=== PATIENT | female | born 1950 | race Caucasian/White ===

== ENCOUNTER 2018-11-27 17:07 | Inpatient (IN) ==
[2018-11-27] MEDS ORDERED: 0.9 % Sodium Chloride 1,000 ML IVC ONE ×2 (17:44→18:56)
[2018-11-27] MEDS ORDERED: *HR* FentaNYL (PF) 100 MCG/2 ML VIAL IVP ONE (17:44)
--- NOTE | 2018-11-27 17:48 | Emergency Department Note ---
Disposition Clinical Impression: Acute kidney injury (nontraumatic), Acute urinary retention, Dehydration, severe Disposition: Admitted As Inpatient Condition: Fair Referrals: Caesar Modi DO [Primary Care Provider] - Forms: ED Satisfaction Letter Time of Disposition: 20:30 Chest Pain HPI - General Chief Complaint: ED Chest Pain Stated Complaint: chest pain Time Seen by Provider: 11/27/18 17:38 Source: patient, EMS Mode of arrival: EMS Limitations: no limitations Vital Signs Reviewed: Yes Nursing Notes Reviewed: Yes - History of Present Illness Pt complaint: chest pain Onset (ago): day(s) Duration: constant Onset: during rest Pain Location: right chest Severity: severe Severity scale (1-10): 10 Quality: heaviness Pain Radiation: none Improves with: nothing Worsens with: nothing Associated symptoms: Reports: other (Patient has had decreased appetite. She complains of weakness and not getting up and walking around over the past couple of days.). Denies: nausea, vomiting Treatments prior to arrival chest pain: none - Related Data Home Medications Medication Instructions Recorded Confirmed Albuterol Sulfate [Ventolin Hfa] 2 puff IH Q4H PRN 08/28/17 11/27/18 Aspirin [Lo-Dose Aspirin EC] 81 mg PO DAILY 08/28/17 11/27/18 Budesonide/Formoterol 160/4.5 2 puff IH BID 08/28/17 11/27/18 [Symbicort 160/4.5] Gabapentin [Neurontin] 800 mg PO TID 08/28/17 11/27/18 Insulin Degludec [Tresiba 60 unit SQ 1400 08/28/17 10/31/18 Flextouch U-100] Levothyroxine Sodium [Synthroid] 137 mcg PO DAILY 08/28/17 11/27/18 Simvastatin [Zocor] 40 mg PO HS 08/28/17 11/27/18 Ipratropium/Albuterol Neb [Duoneb] 3 ml IH Q6HR PRN 05/12/18 10/31/18 Potassium Chloride [Klor-Con] 20 meq PO DAILY 05/12/18 11/27/18 ALPRAZolam [Xanax 1 MG Tablet] 1 mg PO TID PRN 07/21/18 11/27/18 ARIPiprazole [Abilify] 15 mg PO DAILY 07/21/18 11/27/18 Famotidine [Pepcid] 40 mg PO DAILY 07/21/18 11/27/18 Furosemide [Lasix] 80 mg PO DAILY 07/21/18 11/27/18 Lisinopril [Zestril] 10 mg PO DAILY 07/21/18 11/27/18 Pioglitazone HCl 30 mg PO DAILY 07/21/18 11/27/18 Venlafaxine HCl [Venlafaxine HCl 150 mg PO BID 07/21/18 11/27/18 ER] Benztropine Mesylate 0.5 mg PO DAILY 10/31/18 11/27/18 Fexofenadine HCl 180 mg PO DAILY 10/31/18 11/27/18 Fluticasone Propionate [Flovent 50 mcg IH DAILY 10/31/18 11/27/18 Diskus] Allergies Allergy/AdvReac Type Severity Reaction Status Date / Time prednisone AdvReac See Verified 11/27/18 17:11 Comments All systems ED: reviewed and negative except as stated. Constitutional: Denies: fever, chills ENT ED: Denies: ear pain, throat pain, congestion Cardiovascular: Reports: chest pain. Denies: palpitations Respiratory: Denies: cough, dyspnea, wheezes Gastrointestinal: Denies: abdominal pain, nausea, vomiting, diarrhea Neurological: Denies: headache Chest Pain PMH - Past Medical History Medical history: Reports: arthritis, COPD, diabetes, hyperlipidemia, hypertension, renal disease, thyroid disease Surgical history: Reports: appendectomy, cholecystectomy, hysterectomy, other Psychiatric history: Reports: anxiety, bipolar, depression, PTSD CART ATTENDANT history: Reports: no CART ATTENDANT history - Social History Smoking Status: Current every day smoker Alcohol use: Reports: occasionally Drug use: Reports: marijuana Physical Exam - General Limitations: no limitations General appearance: alert - Head Head exam: atraumatic, normocephalic, normal inspection - Eye Eye exam: Present: normal appearance, PERRL, EOMI. Absent: scleral icterus, conjunctival injection, periorbital swelling - ENT ENT exam: normal exam, mucous membranes dry, TM's normal bilaterally, normal external ear exam - Neck Neck exam: Present: normal inspection, full ROM, trachea midline. Absent: meningismus - Chest Chest inspection: Present: normal inspection, symmetric chest wall rise. Absent: tenderness - Respiratory Respiratory exam: Present: normal lung sounds bilaterally. Absent: respiratory distress, wheezes - Cardiovascular Cardiovascular exam: Present: regular rate, normal rhythm, normal heart sounds - Abdominal Exam Abdominal exam: Present: soft, Non-Tender, normal bowel sounds - Extremities Exam Extremities exam: Present: normal inspection. Absent: pedal edema - Neurological Exam Neurological exam: Present: alert, oriented X3. Absent: motor sensory deficit - Psychiatric Psychiatric exam: Present: normal affect, normal mood - Skin Skin exam: Present: warm, dry Course Course Narrative: Patient presents with an actual complaint of chest pain but seems weak and run down a clinically looks very dehydrated. I will start some IV fluids and get a workup going. Disposition will be based on diagnostic results and reevaluation. - Reevaluation(s) Reevaluation #1: Patient's labs show significant elevation of BUN and creatinine. She was not putting out any urine and hurt tongue was so dry that clinically she looks dehydrated. However when we put a Stein catheter and she put out about 2500 mL of urine. I did a CT of the abdomen and there was no hydroureter or hydronephrosis. Turns out the patient took some Lasix to try and urinate. That certainly would explain why there is dehydration yet distended bladder with urinary retention. She is to be admitted for diuresis. She has some skin breakdown on her buttocks as well as need to be evaluated and chronic management of that is going need to be set up. I spoke with the hospitalist, Dr. Diaz and he accepted patient for admission to the hospital. Time: 20:29 Vital Signs Temperature 97.2 F L 11/27/18 17:12 Pulse Rate 88 11/27/18 17:12 Respiratory Rate 18 11/27/18 17:12 Blood Pressure 96/43 11/27/18 17:12 O2 Sat by Pulse Oximetry 93 11/27/18 17:12 Temperature 98.0 F 11/27/18 19:54 Pulse Rate 92 11/27/18 19:54 Respiratory Rate 16 11/27/18 19:54 Blood Pressure 118/41 11/27/18 19:54 O2 Sat by Pulse Oximetry 97 11/27/18 19:54 Oxygen Delivery Oxygen Delivery Nasal Cannula Chest Pain - Medical Records Medical records reviewed: Yes I reviewed the patient's medical records. - Lab Data Lab results reviewed: Yes I reviewed the patient's lab results. Result diagrams: 11/27/18 17:59 11/27/18 17:59 Lab Results 11/27/18 11/27/18 11/27/18 Range/Units 17:59 17:59 17:59 WBC 9.0 (4.3-11.1) K/mcL RBC 3.87 (3.82-4.97) M/mcL Hgb 12.4 (11.5-15.4) g/dL Hct 36.9 (35.3-44.9) % MCV 95.3 (83.0-100.0) fL MCH 32.0 (28.0-33.3) pg MCHC 33.6 (31.6-35.5) g/dL RDW 13.2 (11.5-14.5) % Plt Count 232 (140-400) K/mcL MPV 10.4 (9.4-12.4) fL Immature Gran % 0.3 (0-4) % Seg Neutrophils % 71.4 % Lymphocytes % 19.3 % Monocytes % 7.5 % Eosinophils % 0.7 % Basophils % 0.8 % Neutrophils # 6.4 (1.6-8.9) K/mcL Lymphocytes # 1.7 (0.6-4.6) K/mcL Monocytes # 0.7 (0.0-1.3) K/mcL Eosinophils # 0.1 (0.0-0.6) K/mcL Basophils # 0.1 (0.0-0.2) K/mcL Sodium 128 L (136-145) mEq/L Potassium 5.6 H (3.5-5.1) mEq/L Chloride 96 L (98-107) mEq/L Carbon Dioxide 21 L (23-29) mEq/L BUN 85 H (8-23) mg/dL Creatinine 4.72 H (0.60-1.20) mg/dL Est GFR ( Amer) 11 L (> 60) Est GFR (Non-Af Amer) 9 L (> 60) BUN/Creatinine Ratio 18 (6-26) Glucose 336 H (70-105) mg/dL Calculated Osmolality 305 H (280-300) Lactic Acid 2.2 (0.5-2.2) mmol/L Calcium 10.0 (8.6-10.3) mg/dL Total Bilirubin 0.5 (0.3-1.0) mg/dL Direct Bilirubin 0.1 (0.0-0.2) mg/dL Indirect Bilirubin 0.4 (0.0-1.2) mg/dL AST 9 L (13-39) Units/L ALT 9 (7-52) Units/L Alkaline Phosphatase 111 H (34-104) Units/L Troponin I < 0.03 (< 0.04) ng/mL B-Natriuretic Peptide (Less than 100) pg/mL Serum Total Protein 7.6 (6.4-8.9) g/dL Albumin 4.1 (3.5-5.7) g/dL Globulin 3.5 (2.4-3.5) g/dL Albumin/Globulin Ratio 1.2 (1.1-2.2) Urine Color (Yellow) Urine Clarity (Clear) Urine pH (5.0-8.0) pH Units Ur Specific [place] (1.010-1.025) Urine Protein (Neg-Trace) mg/dL Urine Glucose (UA) (Normal) mg/dL Urine Ketones (Negative) mg/dL Urine Blood (Negative) Urine Nitrite (Negative) Urine Bilirubin (Negative) Urine Urobilinogen (Normal) mg/dL Ur Leukocyte Esterase (Negative) Urine Microscopic RBC (0-3) per hpf Urine Microscopic WBC (0-3) per hpf Ur Squamous Epith Cells (None-Few) per lpf Urine Bacteria (None-Few) per hpf Urine Mucus (Few) Ur Culture Indicated? (NO) 11/27/18 11/27/18 Range/Units 17:59 19:10 WBC (4.3-11.1) K/mcL RBC (3.82-4.97) M/mcL Hgb (11.5-15.4) g/dL Hct (35.3-44.9) % MCV (83.0-100.0) fL MCH (28.0-33.3) pg MCHC (31.6-35.5) g/dL RDW (11.5-14.5) % Plt Count (140-400) K/mcL MPV (9.4-12.4) fL Immature Gran % (0-4) % Seg Neutrophils % % Lymphocytes % % Monocytes % % Eosinophils % % Basophils % % Neutrophils # (1.6-8.9) K/mcL Lymphocytes # (0.6-4.6) K/mcL Monocytes # (0.0-1.3) K/mcL Eosinophils # (0.0-0.6) K/mcL Basophils # (0.0-0.2) K/mcL Sodium (136-145) mEq/L Potassium (3.5-5.1) mEq/L Chloride (98-107) mEq/L Carbon Dioxide (23-29) mEq/L BUN (8-23) mg/dL Creatinine (0.60-1.20) mg/dL Est GFR ( Amer) (> 60) Est GFR (Non-Af Amer) (> 60) BUN/Creatinine Ratio (6-26) Glucose (70-105) mg/dL Calculated Osmolality (280-300) Lactic Acid (0.5-2.2) mmol/L Calcium (8.6-10.3) mg/dL Total Bilirubin (0.3-1.0) mg/dL Direct Bilirubin (0.0-0.2) mg/dL Indirect Bilirubin (0.0-1.2) mg/dL AST (13-39) Units/L ALT (7-52) Units/L Alkaline Phosphatase (34-104) Units/L Troponin I (< 0.04) ng/mL B-Natriuretic Peptide 16 (Less than 100) pg/mL Serum Total Protein (6.4-8.9) g/dL Albumin (3.5-5.7) g/dL Globulin (2.4-3.5) g/dL Albumin/Globulin Ratio (1.1-2.2) Urine Color Yellow (Yellow) Urine Clarity Slightly Cloudy A (Clear) Urine pH 5.5 (5.0-8.0) pH Units Ur Specific [place] 1.010 (1.010-1.025) Urine Protein Negative (Neg-Trace) mg/dL Urine Glucose (UA) 100 H (Normal) mg/dL Urine Ketones Negative (Negative) mg/dL Urine Blood Trace-intact H (Negative) Urine Nitrite Negative (Negative) Urine Bilirubin Negative (Negative) Urine Urobilinogen Normal (Normal) mg/dL Ur Leukocyte Esterase Trace H (Negative) Urine Microscopic RBC 0-3 (0-3) per hpf Urine Microscopic WBC 3-5 H (0-3) per hpf Ur Squamous Epith Cells Few (None-Few) per lpf Urine Bacteria Many H (None-Few) per hpf Urine Mucus Few (Few) Ur Culture Indicated? YES A (NO) - Radiology Data Radiology results reviewed: Yes I reviewed the patient's radiology results. - EKG Data EKG attestation: Yes I reviewed and interpreted this EKG. EKG results narrative: Twelve-lead EKG performed at 1714 p.m. Ordered, reviewed and interpreted by ED physician shows sinus rhythm at a rate of 86. Left axis deviation consistent with left anterior hemiblock. Delayed R-wave progression across precordium. No acute ischemic changes. Intervals otherwise within normal limits.
[2018-11-27 18:07] LABS: Basophils # 0.1 K/mcL (0.0-0.2); Basophils % 0.8 %; Eosinophils # 0.1 K/mcL (0.0-0.6); Eosinophils % 0.7 %; Hematocrit 36.9 % (35.3-44.9); Hemoglobin 12.4 g/dL (11.5-15.4); Immature Granulocytes % 0.3 % (0-4); Lymphocytes # 1.7 K/mcL (0.6-4.6); Lymphocytes % 19.3 %; Mean Corpuscular HGB Conc 33.6 g/dL (31.6-35.5); Mean Corpuscular Volume 95.3 fL (83.0-100.0); Mean Platelet Volume 10.4 fL (9.4-12.4); Monocytes # 0.7 K/mcL (0.0-1.3); Monocytes % 7.5 %; Neutrophils # 6.4 K/mcL (1.6-8.9); Platelet Count 232 K/mcL (140-400); Red Blood Count 3.87 M/mcL (3.82-4.97); Red Cell Distribution Width 13.2 % (11.5-14.5); Segmented Neutrophils % 71.4 %
[2018-11-27 18:26] LABS: Alanine Aminotransferase 9 Units/L (7-52); Albumin 4.1 g/dL (3.5-5.7); Albumin/Globulin Ratio 1.2 (1.1-2.2); Alkaline Phosphatase 111 Units/L (34-104); Aspartate Amino Transferase 9 Units/L (13-39); BUN/Creatinine Ratio 18 (6-26); Bilirubin,Direct 0.1 mg/dL (0.0-0.2); Bilirubin,Indirect 0.4 mg/dL (0.0-1.2); Bilirubin,Total 0.5 mg/dL (0.3-1.0); Blood Urea Nitrogen 85 mg/dL (8-23); Carbon Dioxide 21 mEq/L (23-29); Chloride 96 mEq/L (98-107); Globulin 3.5 g/dL (2.4-3.5); Glucose 336 mg/dL (70-105); Osmolality,Calculated 305 (280-300); Potassium 5.6 mEq/L (3.5-5.1); Sodium 128 mEq/L (136-145); Total Protein 7.6 g/dL (6.4-8.9); Troponin I < 0.03 ng/mL (< 0.04); eGFR For Non-African Americans 9 (> 60)
[2018-11-27 19:17] LABS: Bilirubin,Urine Negative (Negative); Blood,Urine Trace-intact (Negative); Clarity,Urine Slightly Cloudy (Clear); Color,Urine Yellow (Yellow); Glucose,Urine (UA) 100 mg/dL (Normal); Ketones,Urine Negative (Negative); Leukocyte Esterase,Urine Trace (Negative); Nitrite,Urine Negative (Negative); PH,Urine 5.5 pH Units (5.0-8.0); Protein,Urine Negative (Neg-Trace); Urobilinogen,Urine Normal (Normal)
[2018-11-27 19:46] LABS: Mucus,Urine Few (Few); RBC,Urine 0-3 per hpf (0-3); Squamous Epithelial Cell,Urine Few per lpf (None-Few)
[2018-11-27 19:47] LABS: Bacteria,Urine Many per hpf (None-Few)
[2018-11-27] MEDS ORDERED: Ondansetron 4 MG/2 ML VIAL IVP PRN (22:05)
[2018-11-27] MEDS ORDERED: ALPRAZolam 1 MG TABLET PO PRN (22:05)
[2018-11-27] MEDS ORDERED: Ipratropium/Albuterol Neb 3 ML IH PRN (22:05)
[2018-11-27] MEDS ORDERED: Naloxone 0.4 MG/ML INJ IVP PRN (22:05)
[2018-11-27] MEDS: Budesonide/Formoterol 160/4.5 1 PUFF INH IH SCH (23:00)
[2018-11-27] MEDS: Venlafaxine XR (24 HR) 150 MG CAP.ER.24H PO SCH (23:53)
[2018-11-27] MEDS: Gabapentin 400 MG CAPSULE PO SCH (23:53)
[2018-11-27] MEDS: 0.9 % Sodium Chloride 1,000 ML IVC SCH (23:54)
[2018-11-28] MEDS: 0.9 % Sodium Chloride 1,000 ML IVC SCH (06:49)
[2018-11-28] MEDS ORDERED: Aspirin Enteric Coated 81 MG Tablet PO SCH (09:00)
[2018-11-28] MEDS ORDERED: ARIPiprazole 10 MG TABLET PO SCH (09:00)
[2018-11-28] MEDS ORDERED: *HR* Pioglitazone 30 MG TABLET PO SCH (09:00)
[2018-11-28] MEDS: Levothyroxine 25 MCG TABLET PO SCH (09:04)
[2018-11-28] MEDS: Famotidine 20 MG TABLET PO SCH (09:05)
[2018-11-28] MEDS: Venlafaxine XR (24 HR) 150 MG CAP.ER.24H PO SCH ×2 (09:20→20:40)
[2018-11-28] MEDS: Gabapentin 400 MG CAPSULE PO SCH ×3 (09:21→20:40)
[2018-11-28] MEDS: *HR* Pioglitazone 15 MG TABLET PO SCH (09:26)
[2018-11-28] MEDS: Budesonide/Formoterol 160/4.5 1 PUFF INH IH SCH ×2 (09:38→22:56)
--- NOTE | 2018-11-28 10:06 | Internal Med History&Physical ---
Date of Encounter: 11/28/18 Time of Encounter: 09:35 Assessment and Plan (1) Acute on chronic renal failure Current visit: Yes Status: Acute IV fluids have been ordered. Lasix and lisinopril will be held. Further workup will be done as needed. Qualifiers: Acute renal failure type: unspecified Chronic kidney disease stage: stage 3 (moderate) Qualified Code(s): N17.9 - Acute kidney failure, unspecified; N18.3 - Chronic kidney disease, stage 3 (moderate) (2) Hyperkalemia Current visit: Yes Status: Acute Likely secondary to lisinopril and KCl use. These will be held. IV fluids will be given and labs will be monitored. (3) Hyponatremia Current visit: Yes Status: Acute Lasix will be held. IV normal saline has been ordered. Labs will be monitored. (4) Hypothyroid Current visit: No Status: Acute TSH was normal at 1.583 on 07/21/2018. Continue Synthroid. Qualifiers: Hypothyroidism type: unspecified Qualified Code(s): E03.9 - Hypothyroidism, unspecified (5) COPD (chronic obstructive pulmonary disease) Current visit: No Status: Chronic Continue Symbicort and albuterol Qualifiers: Emphysema type: unspecified Qualified Code(s): J43.9 - Emphysema, unspecified (6) Acute urinary retention Current visit: Yes Status: Acute Stein catheter now in place with significant urine output. Continue to monitor. (7) Anxiety Current visit: Yes Status: Acute Xanax will be held because of lethargy. Internal Medicine - H&P: HPI Chief complaint: Chest pain Admitted From: Emergency Dept Plans for Post Hospital Care: Home History of present illness: Ms. Jay is a 68 year old female who came to emergency room complaining of discomfort in her chest that she now reports had been present for approximately one week. In the emergency room she complained of weakness and inability to ambulate in her house. She was found to have urinary retention with approximately 2500 mL urine on Stein catheter insertion. She had significant acute on chronic renal failure. She was admitted to [facility] floor for ongoing care needs. She is lethargic and is a poor historian at this time. Review of available records show hospitalization December 2014 at [facility] with hematuria. She was transferred to [facility] for further evaluation of the hematuria. She does not recall the specific diagnosis at this time. She reports urinary tract in fections in the past. She denies knowledge of kidney stones. She has chronic kidney disease stage III. Past Med Surg Social Fam HX - Past Medical History Medical history: arthritis, COPD, diabetes, hyperlipidemia, hypertension, renal disease, thyroid disease Additional medical history: fibromyalgia. polyosteoarthritis Psychiatric history: anxiety, bipolar, depression, PTSD - Past Surgical History Surgical History: appendectomy, cholecystectomy, hysterectomy, other Additional surgical history: ORIF RT ARM - Social History Smoking Status: Current every day smoker Packs per day: 2 Smokeless Tobacco Status: No Alcohol use: occasionally Drug use: marijuana - Family History Father Hx Family Respiratory Disorders: Yes (lung cancer, smoker) Hx Family Cancer: Yes (lung cancer) Internal Medicine - H&P: Meds Albuterol Sulfate [Ventolin Hfa] 2 puff IH Q4H PRN 08/28/17 [History] Aspirin [Lo-Dose Aspirin EC] 81 mg PO DAILY 08/28/17 [History] Budesonide/Formoterol 160/4.5 [Symbicort 160/4.5] 2 puff IH BID 08/28/17 [History] Gabapentin [Neurontin] 800 mg PO TID 08/28/17 [History] Insulin Degludec [Tresiba Flextouch U-100] 60 unit SQ 1400 08/28/17 [History] Levothyroxine Sodium [Synthroid] 137 mcg PO DAILY 08/28/17 [History] Simvastatin [Zocor] 40 mg PO HS 08/28/17 [History] Ipratropium/Albuterol Neb [Duoneb] 3 ml IH Q6HR PRN 05/12/18 [History] Potassium Chloride [Klor-Con] 20 meq PO DAILY 05/12/18 [History] ALPRAZolam [Xanax 1 MG Tablet] 1 mg PO TID PRN 07/21/18 [History] ARIPiprazole [Abilify] 15 mg PO DAILY 07/21/18 [History] Famotidine [Pepcid] 40 mg PO DAILY 07/21/18 [History] Furosemide [Lasix] 80 mg PO DAILY 07/21/18 [History] Lisinopril [Zestril] 10 mg PO DAILY 07/21/18 [History] Pioglitazone HCl 30 mg PO DAILY 07/21/18 [History] Venlafaxine HCl [Venlafaxine HCl ER] 150 mg PO BID 07/21/18 [History] Benztropine Mesylate 0.5 mg PO DAILY 10/31/18 [History] Fexofenadine HCl 180 mg PO DAILY 10/31/18 [History] Fluticasone Propionate [Flovent Diskus] 50 mcg IH DAILY 10/31/18 [History] Allergy/AdvReac Type Severity Reaction Status Date / Time prednisone AdvReac See Verified 11/27/18 17:11 Comments All Systems PM: A 10-system review of systems was performed and is negative for pertinent findings except as documented above in the HPI. Review of systems: Review of systems from her December 2014 [facility] hospitalization were reviewed and revised as below. Gen.: Her weight has increased from 244 pounds December 2014 to present weight of approximately 287 pounds Cardiovascular: She cleaned she had an AR at [facility] approximately 2012 and was on "life support" but did not remember details. She denies hypertension heart failure DVT or pulmonary embolus Respiratory: She smoked since age 11 up to 3 packs per day. GI: She has had common bile duct stent placed. She has GERD. There is no known disorders of her liver gallbladder or exocrine pancreas otherwise : As per history of present illness Neurologic: She denies large distribution strokes or seizures. She has diabetic peripheral neuropathy. Endocrine: She was diagnosed with DM 2 approximately age 34. She has diabetic peripheral neuropathy and is legally blind. She has hypothyroidism and hyperlipidemia Hematology/oncology: She has no known blood disorders cancers or history of anemia Psychiatric: She has anxiety and bipolar disorder [place] skeletal: She has DJD but no known gout or osteoporosis. She has had left forearm fracture repair and left fourth finger surgery. - Constitutional Vitals: Temp Pulse Resp BP Pulse Ox 97.3 F L 65 16 90/51 95 11/28/18 07:01 11/28/18 07:01 11/28/18 07:01 11/28/18 07:01 11/28/18 07:01 Exam: Gen.: She is a well-developed obese female lying in bed who is lethargic. She drifts off to sleep frequently during questioning. HEENT: Head is atraumatic and normocephalic. Eyes: EOMI. There is no scleral icterus. Mouth: Mucosa is slightly dry. Neck: There is no thyromegaly or adenopathy noted. Heart: Regular without murmurs gallops or ectopics Lungs: No wheezes or crackles are heard. Abdomen: Soft and nontender. No masses or guarding are noted. Extremities: There is no cyanosis edema or clubbing noted. Dorsalis pedis and posterior tibial pulses are trace palpable bilaterally. Her feet are warm to touch. Neurologic: Mental status: She is talkative and a good historian. Cranial nerves: Smile is symmetric. Forehead wrinkles bilaterally. Tongue protrudes midline. EOMI. Motor: She cannot pronate her arms well. There is no obvious pronator drift. She has cogwheeling and rigidity on passive range of motion of her arms. Cerebellar: Finger to nose is intact bilaterally. Skin: Warm and dry Internal Med - H&P Results - Labs CBC & Chem 7: 11/27/18 17:59 11/27/18 17:59 Labs: Short CBC 11/27/18 Range/Units 17:59 WBC 9.0 (4.3-11.1) K/mcL Hgb 12.4 (11.5-15.4) g/dL Hct 36.9 (35.3-44.9) % Plt Count 232 (140-400) K/mcL Neutrophils # 6.4 (1.6-8.9) K/mcL BMP 11/27/18 17:59 Sodium 128 L Potassium 5.6 H Chloride 96 L Carbon Dioxide 21 L BUN 85 H Creatinine 4.72 H Glucose 336 H Calcium 10.0 Cardiac Enzymes 11/27/18 11/27/18 11/28/18 Range/Units 17:59 22:21 04:05 Troponin I < 0.03 < 0.03 < 0.03 (< 0.04) ng/mL Liver Function 11/27/18 Range/Units 17:59 Total Bilirubin 0.5 (0.3-1.0) mg/dL Direct Bilirubin 0.1 (0.0-0.2) mg/dL AST 9 L (13-39) Units/L ALT 9 (7-52) Units/L Alkaline Phosphatase 111 H (34-104) Units/L Albumin 4.1 (3.5-5.7) g/dL Urine 11/27/18 Range/Units 19:10 Urine Color Yellow (Yellow) Urine Clarity Slightly Cloudy A (Clear) Urine pH 5.5 (5.0-8.0) pH Units Ur Specific [place] 1.010 (1.010-1.025) Urine Protein Negative (Neg-Trace) mg/dL Urine Glucose (UA) 100 H (Normal) mg/dL - Impressions ITS Impressions Chest X-Ray 11/27/18 17:44 IMPRESSION: Stable appearance of the chest without acute cardiopulmonary process identified. D/ / Greg Luna MD / Greg Luna MD Interpreting Provider: Greg Luna MD Abdomen/Pelvis CT 11/27/18 19:10 IMPRESSION: No evidence of acute inflammatory process or bowel obstruction. No evidence of nephrolithiasis or obstructive uropathy. D/ / Trent German / Trent German Interpreting Provider: Trent German
[2018-11-28 10:20] LABS: Basophils # 0.1 K/mcL (0.0-0.2); Basophils % 0.8 %; Eosinophils # 0.2 K/mcL (0.0-0.6); Eosinophils % 2.5 %; Hematocrit 34.6 % (35.3-44.9); Hemoglobin 11.4 g/dL (11.5-15.4); Immature Granulocytes % 0.5 % (0-4); Lymphocytes # 1.8 K/mcL (0.6-4.6); Lymphocytes % 20.2 %; Mean Corpuscular HGB Conc 32.9 g/dL (31.6-35.5); Mean Corpuscular Hemoglobin 32.2 pg (28.0-33.3); Mean Corpuscular Volume 97.7 fL (83.0-100.0); Mean Platelet Volume 10.6 fL (9.4-12.4); Neutrophils # 5.7 K/mcL (1.6-8.9); Platelet Count 187 K/mcL (140-400); Red Blood Count 3.54 M/mcL (3.82-4.97); Red Cell Distribution Width 13.2 % (11.5-14.5)
[2018-11-28 10:28] LABS: ABG Base Excess -6 mEq/L (-2 to 3); ABG HCO3 21 mEq/L (21-27); ABG Oxygen Saturation 97 % (95-98); ABG PCO2 42 mmHg (35-45); ABG PO2 96 mmHg (85-104); ABG TCO2 22 mEq/L (20-26)
[2018-11-28 10:32] LABS: Calcium 8.8 mg/dL (8.6-10.3); Magnesium 2.2 mg/dL (1.6-2.6); Potassium 4.9 mEq/L (3.5-5.1)
[2018-11-28] MEDS: (Flovent Diskus] 50 MCG) IH SCH (10:53)
[2018-11-28] MEDS ORDERED: *HR* Dextrose 50 % in Water (Syg) 50 ML SYRINGE IVP PRN (12:26)
[2018-11-28] MEDS ORDERED: D5% in Water 1,000 ML IVC PRN (12:26)
[2018-11-28] MEDS ORDERED: Dextrose Gel 15 GM/37.5 ML TUBE PO PRN ×2 (12:26)
[2018-11-28] MEDS: Insulin LISPRO 300 UNITS/3 ML VIAL SQ SCH ×4 (13:23→20:57)
[2018-11-28] MEDS ORDERED: Insulin DETEMIR 100 UNIT/ML X5UNITS SQ SCH (14:00)
[2018-11-28] MEDS: Nicotine 21 MG PATCH.TD24 TD SCH (15:22)
[2018-11-28] MEDS ORDERED: Acetaminophen 325 MG TABLET PO PRN (16:53)
[2018-11-28] MEDS ORDERED: *HR* Dextrose 50 % in Water (Vial) 50 ML VIAL IVP PRN (17:30)
[2018-11-28] MEDS: ARIPiprazole 5 MG TABLET PO SCH (20:39)
[2018-11-29 05:49] LABS: Basophils % 0.6 %; Eosinophils # 0.2 K/mcL (0.0-0.6); Eosinophils % 3.4 %; Hematocrit 29.2 % (35.3-44.9); Hemoglobin 9.6 g/dL (11.5-15.4); Immature Granulocytes % 0.3 % (0-4); Lymphocytes # 2.1 K/mcL (0.6-4.6); Mean Corpuscular HGB Conc 32.9 g/dL (31.6-35.5); Mean Corpuscular Hemoglobin 32.2 pg (28.0-33.3); Mean Platelet Volume 10.7 fL (9.4-12.4); Monocytes # 0.7 K/mcL (0.0-1.3); Monocytes % 10.1 %; Platelet Count 170 K/mcL (140-400); Red Blood Count 2.98 M/mcL (3.82-4.97); Red Cell Distribution Width 13.2 % (11.5-14.5); Segmented Neutrophils % 56.6 %
[2018-11-29] MEDS: Levothyroxine 25 MCG TABLET PO SCH (06:12)
[2018-11-29 06:16] LABS: Calcium 8.4 mg/dL (8.6-10.3); Potassium 4.8 mEq/L (3.5-5.1)
[2018-11-29] MEDS: Gabapentin 400 MG CAPSULE PO SCH ×3 (08:55→21:01)
[2018-11-29] MEDS: Famotidine 20 MG TABLET PO SCH (08:55)
[2018-11-29] MEDS: Nicotine 21 MG PATCH.TD24 TD SCH (08:55)
[2018-11-29] MEDS: *HR* Pioglitazone 15 MG TABLET PO SCH (09:01)
[2018-11-29] MEDS: ARIPiprazole 5 MG TABLET PO SCH (09:01)
[2018-11-29] MEDS: Venlafaxine XR (24 HR) 150 MG CAP.ER.24H PO SCH ×2 (09:02→21:01)
[2018-11-29] MEDS: Insulin LISPRO 300 UNITS/3 ML VIAL SQ SCH ×4 (09:17→21:02)
--- NOTE | 2018-11-29 09:29 | Internal Med Progress Note ---
Date of Encounter: 11/29/18 Time of Encounter: 09:20 - Assessment and plan (1) Acute on chronic renal failure Current Visit: Yes Status: Acute Assessment and plan: November 29. Creatinine slightly improved to 3.33 with estimated GFR 14. Continue IV fluids. Recheck labs in a.m. Qualifiers: Acute renal failure type: unspecified Chronic kidney disease stage: stage 3 (moderate) Qualified Code(s): N17.9 - Acute kidney failure, unspecified; N18.3 - Chronic kidney disease, stage 3 (moderate) (2) Hyperkalemia Current Visit: Yes Status: Acute Assessment and plan: November 29. Resolved. Potassium 4.8 today. Continue to monitor. (3) Hyponatremia Current Visit: Yes Status: Acute Assessment and plan: November 29. Sodium stable at 132. Continue to monitor. (4) Hypothyroid Current Visit: No Status: Acute Assessment and plan: November 29. TSH was normal at 1.583 on 07/21/2018. Continue Synthroid. Qualifiers: Hypothyroidism type: unspecified Qualified Code(s): E03.9 - Hypothyroidism, unspecified (5) COPD (chronic obstructive pulmonary disease) Current Visit: No Status: Chronic Assessment and plan: November 29. Continue Symbicort and albuterol. Qualifiers: Emphysema type: unspecified Qualified Code(s): J43.9 - Emphysema, unspecified (6) Acute urinary retention Current Visit: Yes Status: Acute Assessment and plan: November 29. Discontinue Stein and monitor urinary output. (7) Anxiety Current Visit: Yes Status: Acute Assessment and plan: November 29. Remain off Xanax. (8) Anemia Current Visit: Yes Status: Acute Assessment and plan: November 29. Hemoglobin has decreased to 9.6. Order anemia testing in a.m. Qualifiers: Anemia type: unspecified type Qualified Code(s): D64.9 - Anemia, unspecified - Subjective Interval history: November 29. She has no new complaints. She states she has chronic back pain - Constitutional Vitals: Temp Pulse Resp BP Pulse Ox 98.1 F 73 16 92/51 94 11/29/18 06:42 11/29/18 06:42 11/29/18 06:42 11/29/18 06:42 11/29/18 06:42 Exam: She is resting comfortably in bed and appears in no acute distress. She is much more alert and talkative. Her conversation is appropriate. I reviewed her medications and lab results. Internal Medicine: Result - Labs CBC & Chem 7: 11/29/18 05:15 11/29/18 05:15 Labs: Short CBC 11/28/18 11/29/18 Range/Units 10:07 05:15 WBC 8.7 7.1 (4.3-11.1) K/mcL Hgb 11.4 L 9.6 L D (11.5-15.4) g/dL Hct 34.6 L 29.2 L (35.3-44.9) % Plt Count 187 170 (140-400) K/mcL Neutrophils # 5.7 4.0 (1.6-8.9) K/mcL BMP 11/28/18 11/29/18 10:07 05:15 Sodium 132 L 132 L Potassium 4.9 4.8 Chloride 104 105 Carbon Dioxide 23 23 BUN 75 H 72 H Creatinine 3.77 H 3.33 H Glucose 241 H 233 H Calcium 8.8 8.4 L Cardiac Enzymes 11/28/18 Range/Units 10:06 Troponin I < 0.03 (< 0.04) ng/mL - ABG Interpretation ABG results: ABG ABG pH 7.30 pH Units (7.32-7.45) L 11/28/18 10:25 ABG pCO2 42 mmHg (35-45) 11/28/18 10:25 ABG pO2 96 mmHg (85-104) 11/28/18 10:25 ABG O2 Saturation 97 % (95-98) 11/28/18 10:25 Consult Discharge Plan - Plan Referrals: Caesar Modi, [Primary Care Provider] - 1 week
[2018-11-29] MEDS: Budesonide/Formoterol 160/4.5 1 PUFF INH IH SCH ×2 (09:51→22:00)
[2018-11-29] MEDS: (Flovent Diskus] 50 MCG) IH SCH (09:57)
[2018-11-29] MEDS: Acetaminophen 325 MG TABLET PO SCH ×2 (11:54→17:38)
[2018-11-29] MEDS: Insulin DETEMIR 100 UNIT/ML X5UNITS SQ SCH (21:01)
[2018-11-30] MEDS ORDERED: MOM Conc 10 ML UD.LIQ PO PRN (00:20)
[2018-11-30] MEDS: Acetaminophen 325 MG TABLET PO SCH ×5 (00:44→23:20)
[2018-11-30] MEDS: Levothyroxine 25 MCG TABLET PO SCH (06:54)
[2018-11-30 07:27] LABS: Basophils % 0.6 %; Eosinophils # 0.3 K/mcL (0.0-0.6); Hematocrit 28.4 % (35.3-44.9); Hemoglobin 9.4 g/dL (11.5-15.4); Immature Granulocytes % 0.5 % (0-4); Lymphocytes # 2.1 K/mcL (0.6-4.6); Lymphocytes % 31.8 %; Mean Corpuscular HGB Conc 33.1 g/dL (31.6-35.5); Mean Corpuscular Hemoglobin 32.1 pg (28.0-33.3); Mean Corpuscular Volume 96.9 fL (83.0-100.0); Mean Platelet Volume 10.4 fL (9.4-12.4); Monocytes # 0.6 K/mcL (0.0-1.3); Monocytes % 8.5 %; Neutrophils # 3.6 K/mcL (1.6-8.9); Platelet Count 168 K/mcL (140-400); Red Blood Count 2.93 M/mcL (3.82-4.97); Red Cell Distribution Width 13.2 % (11.5-14.5); Segmented Neutrophils % 53.6 %
[2018-11-30 08:15] LABS: Calcium 8.4 mg/dL (8.6-10.3); Potassium 5.3 mEq/L (3.5-5.1)
[2018-11-30] MEDS: Insulin LISPRO 300 UNITS/3 ML VIAL SQ SCH ×4 (08:48→20:00)
[2018-11-30] MEDS: Famotidine 20 MG TABLET PO SCH (08:49)
[2018-11-30] MEDS: *HR* Pioglitazone 15 MG TABLET PO SCH (08:49)
[2018-11-30] MEDS: Venlafaxine XR (24 HR) 150 MG CAP.ER.24H PO SCH ×2 (08:49→20:00)
[2018-11-30] MEDS: Gabapentin 400 MG CAPSULE PO SCH ×3 (08:50→20:00)
[2018-11-30] MEDS: ARIPiprazole 5 MG TABLET PO SCH (08:50)
[2018-11-30] MEDS: Nicotine 21 MG PATCH.TD24 TD SCH (08:54)
[2018-11-30 10:10] LABS: Folate 10.1 ng/mL (3.0-16.0)
[2018-11-30] MEDS: Budesonide/Formoterol 160/4.5 1 PUFF INH IH SCH ×2 (10:28→22:26)
[2018-11-30] MEDS: (Flovent Diskus] 50 MCG) IH SCH (10:29)
--- NOTE | 2018-11-30 11:51 | Internal Med Progress Note ---
Date of Encounter: 11/30/18 Time of Encounter: 11:40 - Assessment and plan (1) Acute on chronic renal failure Current Visit: Yes Status: Acute Assessment and plan: November 29. Creatinine slightly improved to 3.33 with estimated GFR 14. Continue IV fluids. Recheck labs in a.m. November 30. Creatinine further improved to 2.45 with estimated GFR 20. Continue IV fluids and monitor labs. Remain off Lasix and lisinopril Qualifiers: Acute renal failure type: unspecified Chronic kidney disease stage: stage 3 (moderate) Qualified Code(s): N17.9 - Acute kidney failure, unspecified; N18.3 - Chronic kidney disease, stage 3 (moderate) (2) Hyperkalemia Current Visit: Yes Status: Acute Assessment and plan: November 29. Resolved. Potassium 4.8 today. Continue to monitor. November 30. Potassium slightly elevated at 5.3. Continue to monitor. Remain off lisinopril. (3) Hyponatremia Current Visit: Yes Status: Acute Assessment and plan: November 29. Sodium stable at 132. Continue to monitor. November 30. Sodium gradually improving. Continue present Rx. (4) Hypothyroid Current Visit: No Status: Acute Assessment and plan: November 29. TSH was normal at 1.583 on 07/21/2018. Continue Synthroid. Qualifiers: Hypothyroidism type: unspecified Qualified Code(s): E03.9 - Hypothyroidism, unspecified (5) COPD (chronic obstructive pulmonary disease) Current Visit: No Status: Chronic Assessment and plan: November 29. Continue Symbicort and albuterol. Qualifiers: Emphysema type: unspecified Qualified Code(s): J43.9 - Emphysema, unspecified (6) Acute urinary retention Current Visit: Yes Status: Acute Assessment and plan: November 29. Discontinue Stein and monitor urinary output. November 30. Start Urecholine and discontinue Stein. (7) Anxiety Current Visit: Yes Status: Acute Assessment and plan: November 29. Remain off Xanax. (8) Anemia Current Visit: Yes Status: Acute Assessment and plan: November 29. Hemoglobin has decreased to 9.6. Order anemia testing in a.m. November 30. Hemoglobin minimally decreased to 9.4. Anemia testing showed iron 70, transferrin saturation 30%, transferrin 169, ferritin 105, B12 293, and folate 10.1. Suspect anemia primarily due to chronic kidney disease. Continue to monitor labs periodically. Qualifiers: Anemia type: unspecified type Qualified Code(s): D64.9 - Anemia, unsp ecified (9) Weakness Current Visit: Yes Status: Acute Assessment and plan: November 30. PT and OT evaluations will be ordered. I had a long discussion with her about her need for therapy prior to attempting return to independent living at home. She seemed agreeable to consider going to SNF ([facility]) for ongoing therapy. - Subjective Interval history: November 29. She has no new complaints. She states she has chronic back pain November 30. She has no new complaints but states she feels tired. - Constitutional Vitals: Temp Pulse Resp BP Pulse Ox 98.2 F 80 18 96/39 95 11/30/18 11:01 11/30/18 11:01 11/30/18 11:01 11/30/18 11:01 11/30/18 11:01 Exam: She is resting comfortably in bed and appears in no acute distress. Her affect is overall cheerful. She was appropriate in conversation. Extremities show no pitting edema. I reviewed her medications and lab results. Internal Medicine: Result - Labs CBC & Chem 7: 11/30/18 07:14 11/30/18 07:14 Labs: Short CBC 11/30/18 Range/Units 07:14 WBC 6.6 (4.3-11.1) K/mcL Hgb 9.4 L (11.5-15.4) g/dL Hct 28.4 L (35.3-44.9) % Plt Count 168 (140-400) K/mcL Neutrophils # 3.6 (1.6-8.9) K/mcL BMP 11/30/18 07:14 Sodium 133 L Potassium 5.3 H Chloride 105 Carbon Dioxide 22 L BUN 72 H Creatinine 2.45 H Glucose 275 H Calcium 8.4 L - ABG Interpretation ABG results: ABG ABG pH 7.30 pH Units (7.32-7.45) L 11/28/18 10:25 ABG pCO2 42 mmHg (35-45) 11/28/18 10:25 ABG pO2 96 mmHg (85-104) 11/28/18 10:25 ABG O2 Saturation 97 % (95-98) 11/28/18 10:25 Consult Discharge Plan - Plan Referrals: Caesar Modi, DO [Primary Care Provider] - 1 week
--- NOTE | 2018-11-30 12:06 | Electrocardiograph Report ---
Test Date: 2018-11-27 Pat Name: Elizabeth Jay Department: EDP-15 Room: 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
[2018-11-30] MEDS: Insulin DETEMIR 100 UNIT/ML X5UNITS SQ SCH (20:00)
[2018-12-01] MEDS: Levothyroxine 25 MCG TABLET PO SCH (05:23)
[2018-12-01] MEDS: Acetaminophen 325 MG TABLET PO SCH ×4 (05:23→23:46)
[2018-12-01 06:17] LABS: Basophils % 0.6 %; Eosinophils # 0.3 K/mcL (0.0-0.6); Eosinophils % 4.2 %; Immature Granulocytes % 0.3 % (0-4); Lymphocytes # 2.2 K/mcL (0.6-4.6); Lymphocytes % 31.6 %; Mean Corpuscular HGB Conc 32.1 g/dL (31.6-35.5); Mean Corpuscular Hemoglobin 31.7 pg (28.0-33.3); Mean Corpuscular Volume 98.6 fL (83.0-100.0); Mean Platelet Volume 10.4 fL (9.4-12.4); Monocytes # 0.7 K/mcL (0.0-1.3); Monocytes % 9.3 %; Neutrophils # 3.8 K/mcL (1.6-8.9); Platelet Count 160 K/mcL (140-400); Red Blood Count 2.84 M/mcL (3.82-4.97); Red Cell Distribution Width 13.2 % (11.5-14.5)
[2018-12-01 06:46] LABS: Calcium 8.3 mg/dL (8.6-10.3); Potassium 5.6 mEq/L (3.5-5.1)
[2018-12-01] MEDS: Insulin LISPRO 300 UNITS/3 ML VIAL SQ SCH ×4 (09:11→21:20)
[2018-12-01] MEDS: *HR* Pioglitazone 15 MG TABLET PO SCH (09:12)
[2018-12-01] MEDS: ARIPiprazole 5 MG TABLET PO SCH (09:12)
[2018-12-01] MEDS: Famotidine 20 MG TABLET PO SCH (09:12)
[2018-12-01] MEDS: Venlafaxine XR (24 HR) 150 MG CAP.ER.24H PO SCH ×2 (09:12→21:20)
[2018-12-01] MEDS: Nicotine 21 MG PATCH.TD24 TD SCH (09:12)
[2018-12-01] MEDS: Gabapentin 400 MG CAPSULE PO SCH ×3 (09:12→21:20)
[2018-12-01] MEDS: (Flovent Diskus] 50 MCG) IH SCH (09:36)
[2018-12-01] MEDS: Budesonide/Formoterol 160/4.5 1 PUFF INH IH SCH ×2 (10:25→22:16)
--- NOTE | 2018-12-01 12:52 | Internal Med Progress Note ---
Date of Encounter: 12/01/18 Time of Encounter: 12:45 - Assessment and plan (1) Acute on chronic renal failure Current Visit: Yes Status: Acute Assessment and plan: November 29. Creatinine slightly improved to 3.33 with estimated GFR 14. Continue IV fluids. Recheck labs in a.m. November 30. Creatinine further improved to 2.45 with estimated GFR 20. Continue IV fluids and monitor labs. Remain off Lasix and lisinopril December 01. Creatinine decreased to 2.03 with estimated GFR 24. Continue present Rx. Qualifiers: Acute renal failure type: unspecified Chronic kidney disease stage: stage 3 (moderate) Qualified Code(s): N17.9 - Acute kidney failure, unspecified; N18.3 - Chronic kidney disease, stage 3 (moderate) (2) Hyperkalemia Current Visit: Yes Status: Acute Assessment and plan: November 29. Resolved. Potassium 4.8 today. Continue to monitor. November 30. Potassium slightly elevated at 5.3. Continue to monitor. Remain off lisinopril. December 01. Potassium has risen to 5.6. Will give Kayexalate. (3) Hyponatremia Current Visit: Yes Status: Acute Assessment and plan: November 29. Sodium stable at 132. Continue to monitor. November 30. Sodium gradually improving. Continue present Rx. December 01. Decrease IV rate continue to monitor. (4) Hypothyroid Current Visit: No Status: Acute Assessment and plan: November 29. TSH was normal at 1.583 on 07/21/2018. Continue Synthroid. Qualifiers: Hypothyroidism type: unspecified Qualified Code(s): E03.9 - Hypothyroidism, unspecified (5) COPD (chronic obstructive pulmonary disease) Current Visit: No Status: Chronic Assessment and plan: November 29. Continue Symbicort and albuterol. Qualifiers: Emphysema type: unspecified Qualified Code(s): J43.9 - Emphysema, unspecified (6) Acute urinary retention Current Visit: Yes Status: Acute Assessment and plan: November 29. Discontinue Stein and monitor urinary output. November 30. Start Urecholine and discontinue Stein. December 01. She had recurrent urinary retention requiring reinsertion of Stein. She will need urology referral. Continue Urecholine. (7) Anxiety Current Visit: Yes Status: Acute Assessment and plan: November 29. Remain off Xanax. (8) Anemia Current Visit: Yes Status: Acute Assessment and plan: November 29. Hemoglobin has decreased to 9.6. Order anemia testing in a.m. November 30. Hemoglobin minimally decreased to 9.4. Anemia testing showed iron 70, transferrin saturation 30%, transferrin 169, ferritin 105, B12 293, and folate 10.1. Suspect anemia primarily due to chronic kidney disease. Continue to monitor labs periodically. December 01. Hemoglobin decreased to 9.0. Decrease IV fluid rate and continue to monitor. Qualifiers: Anemia type: unspecified type Qualified Code(s): D64.9 - Anemia, unspecified (9) Weakness Current Visit: Yes Status: Acute Assessment and plan: November 30. PT and OT evaluations will be ordered. I had a long discussion with her about her need for therapy prior to attempting return to independent living at home. She seemed agreeable to consider going to SNF ([facility] [place]) for ongoing therapy. - Subjective Interval history: November 29. She has no new complaints. She states she has chronic back pain November 30. She has no new complaints but states she feels tired. December 01. She has no new complaints. - Constitutional Vitals: Temp Pulse Resp BP Pulse Ox 97.6 F 65 18 74/39 92 12/01/18 11:28 12/01/18 11:28 12/01/18 11:28 12/01/18 11:28 12/01/18 11:28 Exam: She is resting currently in bed and appears in no acute distress. Her affect is bright and cheerful. I reviewed her medications and lab results. Internal Medicine: Result - Labs CBC & Chem 7: 12/01/18 05:43 12/01/18 05:43 Labs: Short CBC 12/01/18 Range/Units 05:43 WBC 7.0 (4.3-11.1) K/mcL Hgb 9.0 L (11.5-15.4) g/dL Hct 28.0 L (35.3-44.9) % Plt Count 160 (140-400) K/mcL Neutrophils # 3.8 (1.6-8.9) K/mcL BMP 12/01/18 05:43 Sodium 131 L Potassium 5.6 H Chloride 107 Carbon Dioxide 21 L BUN 73 H Creatinine 2.03 H Glucose 201 H Calcium 8.3 L - ABG Interpretation ABG results: ABG ABG pH 7.30 pH Units (7.32-7.45) L 11/28/18 10:25 ABG pCO2 42 mmHg (35-45) 11/28/18 10:25 ABG pO2 96 mmHg (85-104) 11/28/18 10:25 ABG O2 Saturation 97 % (95-98) 11/28/18 10:25 Consult Discharge Plan - Plan Referrals: Caesar Modi, [Primary Care Provider] - 1 week
[2018-12-01] MEDS: Insulin DETEMIR 100 UNIT/ML X5UNITS SQ SCH (21:20)
[2018-12-02] MEDS: Levothyroxine 25 MCG TABLET PO SCH (05:18)
[2018-12-02] MEDS: Acetaminophen 325 MG TABLET PO SCH (05:18)
[2018-12-02 05:24] LABS: Basophils # 0.1 K/mcL (0.0-0.2); Basophils % 0.7 %; Eosinophils # 0.4 K/mcL (0.0-0.6); Eosinophils % 5.8 %; Hematocrit 28.4 % (35.3-44.9); Hemoglobin 9.1 g/dL (11.5-15.4); Immature Granulocytes % 0.4 % (0-4); Lymphocytes # 2.5 K/mcL (0.6-4.6); Lymphocytes % 33.6 %; Mean Corpuscular Hemoglobin 31.7 pg (28.0-33.3); Mean Platelet Volume 10.3 fL (9.4-12.4); Monocytes # 0.7 K/mcL (0.0-1.3); Monocytes % 9.7 %; Neutrophils # 3.7 K/mcL (1.6-8.9); Platelet Count 167 K/mcL (140-400); Red Blood Count 2.87 M/mcL (3.82-4.97); Red Cell Distribution Width 13.3 % (11.5-14.5); Segmented Neutrophils % 49.8 %
[2018-12-02 05:44] LABS: Calcium 8.6 mg/dL (8.6-10.3); Potassium 5.1 mEq/L (3.5-5.1)
[2018-12-02] MEDS ORDERED: Famotidine 20 MG TABLET PO SCH (09:00)
[2018-12-02] MEDS: *HR* Pioglitazone 15 MG TABLET PO SCH (09:45)
[2018-12-02] MEDS: Gabapentin 400 MG CAPSULE PO SCH (09:47)
[2018-12-02] MEDS: Venlafaxine XR (24 HR) 150 MG CAP.ER.24H PO SCH (09:47)
[2018-12-02] MEDS: ARIPiprazole 5 MG TABLET PO SCH (09:48)
[2018-12-02] MEDS: Nicotine 21 MG PATCH.TD24 TD SCH (09:48)
[2018-12-02] MEDS: Insulin LISPRO 300 UNITS/3 ML VIAL SQ SCH (09:49)
[2018-12-02] MEDS: Budesonide/Formoterol 160/4.5 1 PUFF INH IH SCH (10:35)
[2018-12-02] MEDS: (Flovent Diskus] 50 MCG) IH SCH (10:41)
--- NOTE | 2018-12-02 11:31 | Discharge Summary ---
Orders not resulted at time of discharge: Pending orders 11/27/18 18:17 Culture,Blood [BC] Stat Date of Encounter: 12/02/18 Time of Encounter: 11:24 - Discharge Diagnosis (1) Acute on chronic renal failure Priority: Primary Status: Acute Qualifiers: Acute renal failure type: unspecified Chronic kidney disease stage: stage 3 (moderate) Qualified Code(s): N17.9 - Acute kidney failure, unspecified; N18.3 - Chronic kidney disease, stage 3 (moderate) (2) Hyperkalemia Priority: Secondary Status: Acute (3) Hyponatremia Priority: Secondary Status: Acute (4) Hypothyroid Priority: Secondary Status: Acute Qualifiers: Hypothyroidism type: unspecified Qualified Code(s): E03.9 - Hypothyroidism, unspecified (5) COPD (chronic obstructive pulmonary disease) Priority: Secondary Status: Chronic Qualifiers: Emphysema type: unspecified Qualified Code(s): J43.9 - Emphysema, unspecified (6) Acute urinary retention Priority: Secondary Status: Acute (7) Anxiety Priority: Secondary Status: Acute (8) Anemia Priority: Secondary Status: Acute Qualifiers: Anemia type: unspecified type Qualified Code(s): D64.9 - Anemia, unspecified (9) Weakness Priority: Secondary Status: Acute (10) Asymptomatic bacteriuria Priority: Secondary Status: Acute (11) Hypotension Priority: Secondary Status: Acute Qualifiers: Hypotension type: unspecified hypotension type Qualified Code(s): I95.9 - Hypotension, unspecified Hospital course: Ms. Jay is a 68 year old female who came to emergency room complaining of discomfort in her chest that she now reports had been present for approximately one week. In the emergency room she complained of weakness and inability to ambulate in her house. She was found to have urinary retention with approximately 2500 mL urine on Stein catheter insertion. She had significant acute on chronic renal failure. She was admitted to [facility] for ongoing care needs. Initial orders were written by the emergency room physician. I saw her on November 28 and performed the history and physical. She was given IV fluids. Lasix and lisinopril were held. BUN and creatinine improved to 68 and 1.90 respectively by day of discharge with estimated GFR 26. She will remain off these medications at discharge and renal indices will be monitored. Potassium yue to 5.6 on December 01. She was given Kayexalate. Labs will be monitored at the [facility]. Anemia testing showed iron 70, transferrin saturation 30%, transferrin 169, ferritin 105, B12 293, and folate 10.1. Hemoglobin was stable at 9.1 on day of discharge. Attempts were made to discontinue the Stein catheter with recurrent urinary retention requiring reinsertion. Urine culture grew Escherichia coli MDRO. This appears to be asymptomatic bacteriuria. Antibiotics will not be used. Blood pressure remained borderline low throughout her hospital course. She will remain off Lasix and lisinopril and pressure will be monitored at the [facility]. She was asymptomatic. Xanax was held because of lethargy and her mental status returned to baseline. She will remain off this at discharge. Physical therapy and occupational therapy evaluations with ongoing intervention were done. It was felt she would benefit from ongoing therapy. Arrangements were complete on December 02 for her to be discharged to [facility] [place] for ongoing care needs. She will follow with me there. - Time Spent with Patient Total time spent providing and/or coordinating discharge services: - Discharge Medications Prescriptions: New Acetaminophen [Tylenol] 650 mg PO Q6HR tablet Continued Simvastatin [Zocor] 40 mg PO HS Levothyroxine Sodium [Synthroid] 137 mcg PO DAILY Insulin Degludec [Tresiba Flextouch U-100] 60 unit SQ 1400 Gabapentin [Neurontin] 800 mg PO TID Budesonide/Formoterol 160/4.5 [Symbicort 160/4.5] 2 puff IH BID Albuterol Sulfate [Ventolin Hfa] 2 puff IH Q4H PRN PRN Reason: Shortness Of Breath Famotidine [Pepcid] 40 mg PO DAILY ARIPiprazole [Abilify] 15 mg PO DAILY Pioglitazone HCl 30 mg PO DAILY Venlafaxine HCl [Venlafaxine HCl ER] 150 mg PO BID Ipratropium/Albuterol Neb [Duoneb] 3 ml IH Q6HR PRN PRN Reason: Shortness Of Breath Benztropine Mesylate 0.5 mg PO DAILY Fluticasone Propionate [Flovent Diskus] 50 mcg IH DAILY Discontinued Aspirin [Lo-Dose Aspirin EC] 81 mg PO DAILY Furosemide [Lasix] 80 mg PO DAILY Lisinopril [Zestril] 10 mg PO DAILY ALPRAZolam [Xanax 1 MG Tablet] 1 mg PO TID PRN PRN Reason: Anxiety Potassium Chloride [Klor-Con] 20 meq PO DAILY Fexofenadine HCl 180 mg PO DAILY Home Medications: Albuterol Sulfate [Ventolin Hfa] 2 puff IH Q4H PRN 08/28/17 [History] Budesonide/Formoterol 160/4.5 [Symbicort 160/4.5] 2 puff IH BID 08/28/17 [History] Gabapentin [Neurontin] 800 mg PO TID 08/28/17 [History] Insulin Degludec [Tresiba Flextouch U-100] 60 unit SQ 1400 08/28/17 [History] Levothyroxine Sodium [Synthroid] 137 mcg PO DAILY 08/28/17 [History] Simvastatin [Zocor] 40 mg PO HS 08/28/17 [History] Ipratropium/Albuterol Neb [Duoneb] 3 ml IH Q6HR PRN 05/12/18 [History] ARIPiprazole [Abilify] 15 mg PO DAILY 07/21/18 [History] Famotidine [Pepcid] 40 mg PO DAILY 07/21/18 [History] Pioglitazone HCl 30 mg PO DAILY 07/21/18 [History] Venlafaxine HCl [Venlafaxine HCl ER] 150 mg PO BID 07/21/18 [History] Benztropine Mesylate 0.5 mg PO DAILY 10/31/18 [History] Fluticasone Propionate [Flovent Diskus] 50 mcg IH DAILY 10/31/18 [History] Acetaminophen [Tylenol] 650 mg PO Q6HR tablet 12/02/18 [Rx] Allergies/Adverse Reactions: Allergy/AdvReac Type Severity Reaction Status Date / Time prednisone AdvReac See Verified 11/27/18 17:11 Comments Date of admission: 11/28/18 10:18 Primary care physician: Caesar Modi DO Consults: 11/28/18 00:19 Consult to Nutrition [CONS] Routine Comment: decreased appetite and 50lb weight loss Consulting Provider: NUTRITION Reason for Dietary Consult: Other 11/30/18 11:46 Consult to Occupational Therapy [CONS] Routine Comment: Evaluate, develop and implement POC Reason for Consult: Weakness Does patient have active BEDREST order?: No Is patient medically & hemodynamically stable?: Yes Patient assessed for mobility or mobilized this visit?: Yes Consult to Physical Therapy [CONS] Routine Comment: Evaluate, develop and implement POC Reason for Consult: Weakness Does patient have active BEDREST order?: No Is patient medically & hemodynamically stable?: Yes Patient assessed for mobility or mobilized this visit?: Yes - Constitutional Vitals: Temp Pulse Resp BP Pulse Ox 98.2 F 65 18 104/54 100 12/02/18 06:38 12/02/18 06:38 12/02/18 10:35 12/02/18 06:38 12/02/18 10:35 - Patient Status Disposition: Transfer SNF Condition: Fair - Discharge Instructions - Diet and Activity Activity: as per physical therapy Diet: low fat, low cholesterol, low salt diet
[2018-12-02 11:33] VITALS: BP 100/50
--- NOTE | 2018-12-02 11:44 | Physician Discharge Referral ---
ExtendedCare Referral Info Transfer To: [facility] [place] Provider in Charge: Joe Provider in Charge after Transfer: PCP Benjamin) Institutional Level of Care: Skilled - Diagnosis (1) Acute on chronic renal failure Priority: Primary Status: Acute (2) Hyperkalemia Priority: Secondary Status: Acute (3) Hyponatremia Priority: Secondary Status: Acute (4) Hypothyroid Priority: Secondary Status: Acute (5) COPD (chronic obstructive pulmonary disease) Priority: Secondary Status: Chronic (6) Acute urinary retention Priority: Secondary Status: Acute (7) Anxiety Priority: Secondary Status: Acute (8) Anemia Priority: Secondary Status: Acute (9) Weakness Priority: Secondary Status: Acute (10) Asymptomatic bacteriuria Priority: Secondary Status: Acute (11) Hypotension Priority: Secondary Status: Acute Prognosis: Good Aware of Diagnosis: Patient Aware of Prognosis: Patient - Transfer Medications Prescriptions: MOM Conc [MILK OF MAGNELIA conc] 10 ml PO Q48H 365 Days mls Home Medications: Albuterol Sulfate [Ventolin Hfa] 2 puff IH Q4H PRN 08/28/17 [History] Budesonide/Formoterol 160/4.5 [Symbicort 160/4.5] 2 puff IH BID 08/28/17 [History] Gabapentin [Neurontin] 800 mg PO TID 08/28/17 [History] Insulin Degludec [Tresiba Flextouch U-100] 60 unit SQ 1400 08/28/17 [History] Levothyroxine Sodium [Synthroid] 137 mcg PO DAILY 08/28/17 [History] Simvastatin [Zocor] 40 mg PO HS 08/28/17 [History] Ipratropium/Albuterol Neb [Duoneb] 3 ml IH Q6HR PRN 05/12/18 [History] ARIPiprazole [Abilify] 15 mg PO DAILY 07/21/18 [History] Famotidine [Pepcid] 40 mg PO DAILY 07/21/18 [History] Pioglitazone HCl 30 mg PO DAILY 07/21/18 [History] Venlafaxine HCl [Venlafaxine HCl ER] 150 mg PO BID 07/21/18 [History] Benztropine Mesylate 0.5 mg PO DAILY 10/31/18 [History] Fluticasone Propionate [Flovent Diskus] 50 mcg IH DAILY 10/31/18 [History] Acetaminophen [Tylenol] 650 mg PO Q6HR tablet 12/02/18 [Rx] MOM Conc [MILK OF MAGNESIA conc] 10 ml PO Q48H 365 Days mls 12/02/18 [Rx] Allergies/Adverse Reactions: Allergy/AdvReac Type Severity Reaction Status Date / Time prednisone AdvReac See Verified 11/27/18 17:11 Comments - Respiratory Orders Oxygen / L per min (2 Liters per minute by nasal cannula) Smoking Cessation: Smoking cessation has been advised. For more information, call the [place] Tobacco Quit Line at 0-644-SBCH-NOW. - Rehabiliation Orders Rehab Potential: Good Rehab Orders: Evaluation for Physical Therapy, Evaluation for Occupational Therapy - Diet Orders Renal CERTIFICATION: I certify that the transfer of the above named patient to an Extended Care Facility is necessary for the continuing treatment of the diagnosis listed. The above information is true and accurate reflection of patient's current condition. Confidential - Redisclosure prohibited without a patient's written consent.
== END 2018-12-02 13:12 | DRG 469 ==
LOC: INPPIK 17:07 → EMEROOPIK 17:07 → INPPIK 21:41
PROVIDERS: ADMIT Internal Medicine; ATTEND Internal Medicine

== ENCOUNTER 2019-06-02 17:28 | Inpatient (IN) ==
[2019-06-02] MEDS ORDERED: 0.9 % Sodium Chloride 1,000 ML IVC ONE (17:52)
[2019-06-02 18:00] LABS: Basophils % 0.3 %; Hematocrit 31.3 % (35.3-44.9); Hemoglobin 10.4 g/dL (11.5-15.4); Immature Granulocytes % 0.5 % (0-4); Lymphocytes # 1.6 K/mcL (0.6-4.6); Lymphocytes % 12.4 %; Mean Corpuscular HGB Conc 33.2 g/dL (31.6-35.5); Mean Corpuscular Hemoglobin 30.1 pg (28.0-33.3); Mean Corpuscular Volume 90.5 fL (83.0-100.0); Mean Platelet Volume 10.1 fL (9.4-12.4); Monocytes # 1.2 K/mcL (0.0-1.3); Monocytes % 9.3 %; Platelet Count 376 K/mcL (140-400); Red Blood Count 3.46 M/mcL (3.82-4.97); Red Cell Distribution Width 14.8 % (11.5-14.5); Segmented Neutrophils % 77.5 %; White Blood Count 12.9 K/mcL (4.3-11.1)
[2019-06-02 18:03] LABS: Bilirubin,Urine Moderate (Negative); Blood,Urine Small (Negative); Clarity,Urine Cloudy (Clear); Color,Urine Light Yellow (Yellow); Glucose,Urine (UA) >=1000 mg/dL (Normal); Ketones,Urine 80 mg/dL (Negative); Leukocyte Esterase,Urine Moderate (Negative); Nitrite,Urine Negative (Negative); PH,Urine 8.5 pH Units (5.0-8.0); Protein,Urine 30 mg/dL (Neg-Trace); Specific Gravity,Urine 1.015 (1.010-1.025); Urobilinogen,Urine Normal (Normal)
[2019-06-02 18:08] LABS: Prothrombin Time 11.3 Seconds (9.4-12.1)
[2019-06-02 18:11] LABS: Activated Partial Thrombo Time 34.1 Seconds (26.0-36.0)
[2019-06-02 18:12] LABS: WBC,Urine 50-100 per hpf (0-3)
[2019-06-02 18:13] LABS: Bacteria,Urine Many per hpf (None-Few); Granular Casts,Urine Few per lpf (None Seen); Renal Epithelial Cells,Urine Few per hpf (None-Few); Squamous Epithelial Cell,Urine None Seen per lpf (None-Few); Triple Phosphate Crystal,Urine Present
[2019-06-02 18:20] LABS: Troponin I < 0.03 ng/mL (< 0.04)
[2019-06-02 18:26] LABS: ABG Base Excess -2 mEq/L (-2 to 3); ABG HCO3 23 mEq/L (21-27); ABG Oxygen Saturation 97 % (95-98); ABG PCO2 41 mmHg (35-45); ABG PH 7.36 pH Units (7.32-7.45); ABG PO2 92 mmHg (85-104); ABG TCO2 24 mEq/L (20-26)
[2019-06-02 18:30] LABS: Alanine Aminotransferase 18 Units/L (7-52); Albumin 3.2 g/dL (3.5-5.7); Alkaline Phosphatase 296 Units/L (34-104); Aspartate Amino Transferase 13 Units/L (13-39); BUN/Creatinine Ratio 20 (6-26); Bilirubin,Direct 0.1 mg/dL (0.0-0.2); Bilirubin,Indirect 0.3 mg/dL (0.0-1.0); Bilirubin,Total 0.4 mg/dL (0.3-1.0); Blood Urea Nitrogen 54 mg/dL (8-23); Calcium 9.8 mg/dL (8.6-10.3); Carbon Dioxide 24 mEq/L (23-29); Chloride 99 mEq/L (98-107); Globulin 3.3 g/dL (2.4-3.5); Glucose 591 mg/dL (70-105); Osmolality,Calculated 320 (280-300); Potassium 4.3 mEq/L (3.5-5.1); Sodium 134 mEq/L (136-145); Total Protein 6.5 g/dL (6.4-8.9); eGFR For African Americans 22 (> 60); eGFR For Non-African Americans 18 (> 60)
[2019-06-02] MEDS ORDERED: cefTRIAXone 2,000 MG in 0.9 % Sodium Chloride Mini Bag 100 ML IVPB ONE (18:51)
[2019-06-02] MEDS ORDERED: Insulin Regular, Human 100 UNIT/ML SQ ONE (18:53)
[2019-06-02] MEDS ORDERED: *HR* Dextrose 50 % in Water (Syg) 50 ML SYRINGE IVP PRN (20:14)
[2019-06-02] MEDS ORDERED: Naloxone 0.4 MG/ML INJ IVP PRN (20:14)
[2019-06-02] MEDS ORDERED: Dextrose Gel 15 GM/37.5 ML TUBE PO PRN ×4 (20:14)
[2019-06-02] MEDS ORDERED: *HR* Dextrose 50 % in Water (Vial) 50 ML VIAL IVP PRN (20:14)
[2019-06-02] MEDS ORDERED: D5% in Water 1,000 ML IVC PRN (20:14)
[2019-06-02] MEDS: 0.9 % Sodium Chloride 1,000 ML IVC SCH (20:55)
[2019-06-02] MEDS ORDERED: Insulin LISPRO 300 UNITS/3 ML VIAL SQ ONE (21:56)
[2019-06-02] MEDS ORDERED: Ipratropium/Albuterol Neb 3 ML IH PRN (22:00)
[2019-06-02] MEDS ORDERED: Azithromycin 500 MG in 0.9 % Sodium Chloride 250 ML IVPB ONE (23:47)
[2019-06-03] MEDS: Insulin LISPRO 300 UNITS/3 ML VIAL SQ SCH ×3 (00:17→12:40)
[2019-06-03] MEDS ORDERED: *HR* Digoxin 0.5 MG/2 ML AMPUL IVP ONE ×2 (03:31→07:35)
[2019-06-03] MEDS ORDERED: *HR* Digoxin 0.5 MG/2 ML AMPUL ONE (03:34)
[2019-06-03] MEDS ORDERED: *HR* Adenosine 6 MG/2 ML VIAL IVP ONE ×4 (04:04→06:38)
[2019-06-03 05:04] LABS: Basophils # 0.1 K/mcL (0.0-0.2); Basophils % 0.4 %; Eosinophils % 0.2 %; Hematocrit 34.8 % (35.3-44.9); Hemoglobin 10.8 g/dL (11.5-15.4); Immature Granulocytes % 0.3 % (0-4); Lymphocytes # 2.8 K/mcL (0.6-4.6); Lymphocytes % 22.6 %; Mean Corpuscular Hemoglobin 30.1 pg (28.0-33.3); Mean Corpuscular Volume 96.9 fL (83.0-100.0); Mean Platelet Volume 9.7 fL (9.4-12.4); Monocytes # 1.4 K/mcL (0.0-1.3); Monocytes % 11.3 %; Neutrophils # 8.1 K/mcL (1.6-8.9); Platelet Count 316 K/mcL (140-400); Red Blood Count 3.59 M/mcL (3.82-4.97); Red Cell Distribution Width 15.4 % (11.5-14.5); Segmented Neutrophils % 65.2 %; White Blood Count 12.4 K/mcL (4.3-11.1)
[2019-06-03 05:19] LABS: Calcium 9.3 mg/dL (8.6-10.3); Potassium 4.2 mEq/L (3.5-5.1)
[2019-06-03] MEDS: 0.9 % Sodium Chloride 1,000 ML IVC SCH (05:40)
[2019-06-03] MEDS ORDERED: 0.9 % Sodium Chloride 500 ML IV ONE ×2 (05:56→09:30)
[2019-06-03] MEDS ORDERED: Verapamil 5 MG/2 ML VIAL ONE (06:51)
[2019-06-03] MEDS: Verapamil 5 MG/2 ML VIAL IVP ONE ×2 (06:53→06:54)
[2019-06-03 08:09] LABS: Bilirubin,Total 0.3 mg/dL (0.3-1.0); Calcium 9.3 mg/dL (8.6-10.3); Potassium 3.8 mEq/L (3.5-5.1)
[2019-06-03] MEDS ORDERED: Venlafaxine XR (24 HR) 150 MG CAP.ER.24H PO SCH (09:00)
[2019-06-03] MEDS ORDERED: *HR* Pioglitazone 15 MG TABLET PO SCH (09:00)
[2019-06-03] MEDS ORDERED: cefTRIAXone 1,000 MG in Water for inj. (sterile) 10 ML IVP SCH (09:00)
[2019-06-03] MEDS ORDERED: *HR* Glimepiride 2 MG TABLET PO SCH (09:00)
[2019-06-03] MEDS ORDERED: Albuterol 2.5 MG/3 ML NEBULIZER IH PRN (10:16)
[2019-06-03 11:37] VITALS: BP 102/69
[2019-06-03] MEDS ORDERED: 0.9 % Sodium Chloride 1,000 ML IVC SCH (11:45)
[2019-06-03] MEDS ORDERED: *HR* Heparin 5,000 UNIT/ML VIAL IVP ONE (12:19)
[2019-06-03] MEDS ORDERED: *HR* Heparin 5,000 UNIT/ML VIAL IVP PRN ×2 (12:19)
[2019-06-03] MEDS ORDERED: Heparin 25,000 UNIT/250 ML D5W 25,000 UNIT/250 ML IV.SOLN IVC SCH (12:30)
[2019-06-03 12:56] LABS: Hematocrit 29.5 % (35.3-44.9); Hemoglobin 9.6 g/dL (11.5-15.4); Mean Corpuscular HGB Conc 32.5 g/dL (31.6-35.5); Mean Corpuscular Hemoglobin 30.3 pg (28.0-33.3); Mean Corpuscular Volume 93.1 fL (83.0-100.0); Mean Platelet Volume 9.5 fL (9.4-12.4); Platelet Count 285 K/mcL (140-400); Red Blood Count 3.17 M/mcL (3.82-4.97); Red Cell Distribution Width 14.9 % (11.5-14.5); White Blood Count 12.4 K/mcL (4.3-11.1)
[2019-06-03 13:31] LABS: INR 0.9; Prothrombin Time 10.3 Seconds (9.4-12.1)
[2019-06-03] MEDS ORDERED: Lactobacillus 1 EACH CAP.SPRINK PO SCH (21:00)
[2019-06-03] MEDS ORDERED: Insulin LISPRO 300 UNITS/3 ML VIAL SQ ONE (21:52)
[2019-06-04] MEDS ORDERED: *HR* Enoxaparin 30 MG/0.3 ML SYRINGE SQ SCH (06:00)
== END 2019-06-03 14:19 | disposition other institution (70) | DRG 201 ==
LOC: EMEROOPIK 17:28 → INPPIK 17:28
PROVIDERS: ADMIT Internal Medicine; ATTEND Internal Medicine